=== PATIENT | female | born 1975 | race Caucasian/White ===

== ENCOUNTER 2016-12-02 07:47 | Emergency (ER) | payer OTHER ==
[~2016-12-02] VITALS: Ht 170.2 cm; Wt 88.5 kg
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
[2016-12-02] MEDS ORDERED: NS IV 1000 ML 1,000 ML IV ONE (08:23)
[2016-12-02 08:40] LABS: BASOPHILS % (AUTO) 0 % (0-10); EOSINOPHILS # (AUTO) 0.2 10^3/uL (0.0-0.3); EOSINOPHILS % (AUTO) 2 % (0-10); LYMPHOCYTES # (AUTO) 1.1 X 10^3 (1.0-4.0); LYMPHOCYTES % (AUTO) 10 % (12-44); MEAN CORPUSCULAR HEMOGLOBIN 27 PG (25-34); MEAN CORPUSCULAR HGB CONC 32 G/DL (32-36); MEAN CORPUSCULAR VOLUME 83 FL (80-99); MONOCYTES # (AUTO) 1.3 X 10^3 (0.0-1.0); MONOCYTES % (AUTO) 12 % (0-12); NEUTROPHILS # (AUTO) 8.4 X 10^3 (1.8-7.8); NEUTROPHILS % (AUTO) 76 % (42-75); PLATELET COUNT 315 10^3/uL (130-400); RED BLOOD COUNT 4.74 10^6/uL (4.35-5.85); RED CELL DISTRIBUTION WIDTH 13.6 % (10.0-14.5)
[2016-12-02 08:48] LABS: BILIRUBIN,URINE NEGATIVE (NEGATIVE); KETONES,URINE NEGATIVE (NEGATIVE); LEUKOCYTE ESTERASE ,URINE 2+ (NEGATIVE); NITRITE,URINE NEGATIVE (NEGATIVE); PH,URINE 6 (5-9); PROTEIN,URINE 2+ (NEGATIVE); UROBILINOGEN,URINE NORMAL (NORMAL)
[2016-12-02 08:58] LABS: ALANINE AMINOTRANSFERASE 9 U/L (0-55); ALBUMIN 3.3 G/DL (3.2-4.5); ANION GAP 7 MMOL/L (5-14); ASPARTATE AMINO TRANSFERASE 12 U/L (5-34); BILIRUBIN,TOTAL 0.5 MG/DL (0.1-1.0); BLOOD UREA NITROGEN 10 MG/DL (7-18); BUN/CREATININE RATIO 13; CALCIUM 8.7 MG/DL (8.5-10.1); CARBON DIOXIDE 23 MMOL/L (21-32); CHLORIDE 105 MMOL/L (98-107); CREATININE SERUM 0.79 MG/DL (0.60-1.30); GFR ESTIMATED > 60; GLUCOSE 103 MG/DL (70-105); POTASSIUM 3.8 MMOL/L (3.6-5.0); SODIUM 135 MMOL/L (135-145); TOTAL PROTEIN 6.3 G/DL (6.4-8.2); hs C REACTIVE PROTEIN 5.06 MG/DL (0.00-0.50)
[2016-12-02 08:58] LABS: SQUAMOUS EPITHELIAL CELL,UR TNTC /HPF
[2016-12-02] MEDS ORDERED: ACETAMINOPHEN 500 MG TAB (TYLENOL) PO STA (09:02)
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
[2016-12-02 09:21] LABS: ERYTHROCYTE SEDIMENTATION RATE 31 MM/HR (0-20)
[2016-12-02] MEDS ORDERED: cefTRIAXone INJECTION 1,000 MG in NS (IVPB) 50 ML IV ONE (10:00)
[2016-12-02] MEDS ORDERED: LEVO750T39 PO (10:19)
[2016-12-02] MEDS ORDERED: ANTI DEPRESSANT (10:29)
[2016-12-02] MEDS ORDERED: ADDERALL XR (10:29)
[2016-12-02] MEDS ORDERED: ANTI ANXIETY (10:29)
[2016-12-02] MEDS ORDERED: DOXYCYCLINE (10:29)
[2016-12-02 10:40] VITALS: BP 90/51
== END 2016-12-02 10:40 | disposition home or self-care (01) ==
LOC: EDUNIT# 07:47 → ER 07:49
DX: J18.9 Pneumonia, unspecified organism (principal); K92.1 Melena
CPT/HCPCS: 36415; 71020; 80053; 81000; 83605; 85025; 85652; 86141; 87040; 87088; 96361; 96365

== ENCOUNTER → 2016-12-03 | Outpatient (CLI) | payer OTHER ==
[~2016-12-03] MED LIST: ADDERALL XR; ANTI ANXIETY; ANTI DEPRESSANT; DOXYCYCLINE; LEVO750T39 PO
--- NOTE | 2016-12-03 13:02 | Diagnostic Imaging Report ---
PA and lateral views of the chest. INDICATION: Pneumonia. COMPARISON: 12/02/2016. FINDINGS: Bilateral perihilar infiltrates are again noted with no significant change. The heart size is normal. No effusion or pneumothorax. The mediastinum and lawrence appear unremarkable. Surgical clips in the upper right abdomen seen. There is an indeterminate rounded density in the right axilla which may relate to a calcified lymph node from prior granulomatous infection or an oil cyst in the axillary tail of the breast. IMPRESSION: Bilateral patchy perihilar infiltrates unchanged from the prior exam. Dictated by: Dictated on workstation # [id number]
== END ==
LOC: RAD 10:21
PROVIDERS: ATTEND Family Medicine
DX: J18.9 Pneumonia, unspecified organism (principal)
CPT/HCPCS: 71020

== ENCOUNTER → 2017-01-12 | Outpatient (CLI) | payer OTHER | END | disposition home or self-care (01) | LOC: RAD 07:17 | PROVIDERS: ATTEND Nurse Practitioner Community Health | DX: Z12.31 Encounter for screening mammogram for malignant neoplasm of breast (principal) | CPT/HCPCS: 77067 ==

== ENCOUNTER 2017-06-12 07:56 | Outpatient (RCR) | payer OTHER | END 2017-09-10 | disposition home or self-care (01) | LOC: CARD 07:56 | PROVIDERS: ATTEND Internal Medicine Interventional Cardiology | DX: R00.2 Palpitations (principal); R94.31 Abnormal electrocardiogram [ECG] [EKG]; R06.02 Shortness of breath | CPT/HCPCS: 93225; 93226 ==

== ENCOUNTER → 2017-06-17 | Outpatient (CLI) | payer OTHER ==
--- NOTE | 2017-06-17 16:14 | Diagnostic Imaging Report ---
PROCEDURE: MR imaging cervical spine without contrast. TECHNIQUE: Multiplanar, multisequence MR imaging of the cervical spine was performed without contrast. INDICATION: Neck pain radiating into the right arm. COMPARISON: No previous for direct comparison. FINDINGS: There is straightening of cervical lordosis without listhesis. Marrow signal intensity of the cervical spine was unremarkable. There is no paravertebral mass, hemorrhage, or fluid collection. Cord itself appeared intrinsically unremarkable. The craniocervical relationship, the C1-C2 level and disc, the C2-C3, and the C3-C4 as well as C4-C5 levels and discs all appeared normal. The canal and neural foramina are widely patent at those levels. C5-C6: There is disc desiccation, loss of disc stature, and diffuse posterior bulging and elevation of the posterior longitudinal ligament. Disease effaces the ventral thecal sac with no perceptible CSF ventral or dorsal to the cord at the level of maximal narrowing where the AP canal diameter was narrowed to measure 7.3 mm with kepisuml-lv-[id number] canal stenosis resultant. There does appear to be mild biforaminal narrowing owing to the disc. C6-C7: Eccentric to the right posterior broad-based disc protrusion indents the ventral thecal sac and results in at least moderate stenosis of the proximal aspect of the right neural foramen. Disc extends posterior to the endplate margin maximal about 5 mm and measures a little over 1 cm transverse at its base. The C7-T1 level and disc appeared normal. IMPRESSION: Disc protrusions posteriorly at C5-C6 and C6-C7 resulting in canal and foraminal stenoses as described. Cord appeared intrinsically normal, and no acute osseous pathology. The remaining levels and discs appeared normal. Dictated by: Dictated on workstation # [id number]
== END ==
LOC: RAD 11:17
PROVIDERS: ATTEND Nurse Practitioner Community Health
DX: M50.222 Other cervical disc displacement at C5-C6 level (principal)
CPT/HCPCS: 72141

== ENCOUNTER → 2017-09-30 | Outpatient (CLI) | payer OTHER | LOC: CARD 11:11 | PROVIDERS: ATTEND Internal Medicine Interventional Cardiology | DX: R00.2 Palpitations (principal); R06.02 Shortness of breath; I45.81 Long QT syndrome | CPT/HCPCS: 93306 ==

== ENCOUNTER 2018-05-03 20:07 | Outpatient (CLI) | payer OTHER | END 2018-05-04 06:53 | disposition home or self-care (01) | LOC: SLEEP 20:07 | PROVIDERS: ATTEND Nurse Practitioner Community Health | DX: G47.10 Hypersomnia, unspecified (principal); R06.83 Snoring; G47.61 Periodic limb movement disorder; F39 Unspecified mood [affective] disorder | CPT/HCPCS: 95810 ==

== ENCOUNTER 2018-08-16 14:54 | Outpatient (CLI) | payer OTHER ==
[~2018-08-16] VITALS: Ht 170.2 cm; Wt 99.3 kg
[2018-08-16 15:03] VITALS: BP 134/75
[2018-08-16] MEDS ORDERED: GUAN1TAB21 PO (15:07)
[2018-08-16] MEDS ORDERED: TRAZ150T72 PO (15:38)
[2018-08-16] MEDS ORDERED: DEXM30CP PO (15:38)
[2018-08-16] MEDS ORDERED: LORA-404 PO (15:38)
[2018-08-16] MEDS ORDERED: NEBI5TAB8 PO (15:38)
[2018-08-16] MEDS ORDERED: ROPI1TAB2 PO (15:38)
[2018-08-16] MEDS ORDERED: DESV100T PO (15:38)
[2018-08-16] MEDS ORDERED: RANI150T46 PO (15:38)
[2018-08-16] MEDS ORDERED: RT-ALBUINH IH (15:38)
[2018-08-16 16:05] LABS: BASOPHILS % (AUTO) 0 % (0-10); EOSINOPHILS # (AUTO) 0.1 10^3/uL (0.0-0.3); EOSINOPHILS % (AUTO) 1 % (0-10); HEMATOCRIT 43 % (35-52); HEMOGLOBIN 14.1 G/DL (11.5-16.0); LYMPHOCYTES # (AUTO) 2.1 X 10^3 (1.0-4.0); LYMPHOCYTES % (AUTO) 16 % (12-44); MEAN CORPUSCULAR HEMOGLOBIN 28 PG (25-34); MEAN CORPUSCULAR HGB CONC 33 G/DL (32-36); MEAN CORPUSCULAR VOLUME 85 FL (80-99); MEAN PLATELET VOLUME 10.8 FL (7.4-10.4); MONOCYTES # (AUTO) 0.8 X 10^3 (0.0-1.0); MONOCYTES % (AUTO) 6 % (0-12); NEUTROPHILS # (AUTO) 10.3 X 10^3 (1.8-7.8); NEUTROPHILS % (AUTO) 78 % (42-75); PLATELET COUNT 403 10^3/uL (130-400); RED BLOOD COUNT 5.03 10^6/uL (4.35-5.85); RED CELL DISTRIBUTION WIDTH 13.8 % (10.0-14.5); WHITE BLOOD COUNT 13.2 10^3/uL (4.3-11.0)
== END 2018-08-16 15:25 | disposition home or self-care (01) ==
LOC: PREOP 14:54
PROVIDERS: ATTEND Obstetrics & Gynecology
DX: Z01.812 Encounter for preprocedural laboratory examination (principal); Z11.2 Encounter for screening for other bacterial diseases; N93.8 Other specified abnormal uterine and vaginal bleeding; N81.6 Rectocele; D64.9 Anemia, unspecified
CPT/HCPCS: 36415; 85025; 86850; 86900; 86901; 87081

== ENCOUNTER 2018-08-20 11:20 | Day surgery (SDC) | payer OTHER ==
[~2018-08-20] VITALS: Ht 170.2 cm; Wt 99.3 kg
[~2018-08-20 11:20] MED LIST changes: +DESV100T PO; +DEXM30CP PO; +GUAN1TAB21 PO; +LORA-404 PO; +NEBI5TAB8 PO; +RANI150T46 PO; +ROPI1TAB2 PO; +RT-ALBUINH IH; +TRAZ150T72 PO
--- OUTSIDE RECORDS SUMMARY | 2018-08-20 11:27 | XMS REPORT | Clinical Summary ---
Author Author [facility] Organization [facility] Address Unknown Phone Unavailable Care Team Providers Care Senior Software Engineering Manager Name Role Phone Yana Patrick MD PP Allergies Comments Active Allergy Reactions Severity Noted Date Hives IODINE Iodine Medications End Date Status Medication Sig Dispensed Refills Start Date Active lidocaine (XYLOCAINE) 2 % Swish and 100 mL 0 solutionIndications: Sore hold 2.5-5 ml 4 throat PO every 1-2 hours prn for throat/mouth pain or cough, then swallow or spit. Active amphetamine-dextroampheta Take 1 tablet 30 tablet 0 mine (ADDERALL) 10 MG (10 mg total) 4 tablet by mouth every morning. Active amphetamine-dextroampheta Take 2 60 capsule 0 mine (ADDERALL XR) 30 MG capsules (60 4 24 hr capsuleIndications: mg total) by Attention deficit mouth every disorder without mention morning. of hyperactivity Active Problems Problem Noted Date Dysuria 02/08/2013 Abnormal glandular Papanicolaou smear of cervix Anxiety state, unspecified Attention deficit disorder without mention of hyperactivity Immunizations Name Dates Previously Given Next Due Influenza IIV3 MDV 04/14/2013 (Multi-dose vial) Influenza IIV3 PFree 05/10/2012, 05/03/2010 Influenza LAIV3 Nasal 05/01/2011 Tdap 02/17/2012 Family History Medical History Relation Name Comments Other Other Mother - Cancer, cervical; Fibromyalgia Other Other Father - healthy Other Other Brother #1 - is Alive, Hypertension; overweight Other Other Maternal Grandmother - is , Other History: Congestive heart failure; Cancer, colon age 60-70 Other Other Maternal Grandfather - at the age of 80s, Cause of :Pneumonia Other Other Paternal Grandfather - is , Cause of :Dementia, Alzheimer's; Other History: DM Type II Other Other Family History Comments - Daughter Bipolar disorder; ADHD Other Other Family History Comments - Daughter overweight Other Other Family History Comments - Son adopted Relation Name Status Comments Father Alive Mother Alive Other Other Other Other Other Other Other Other Other Social History Date Tobacco Use Types Packs/Day Years Used Former Smoker Comments: Quit smoking: Year stopped 2008/Number of yrs: /Packs per day: /Pack years: * Sex Assigned at Date Recorded Not on file Industry Job Start Date Occupation Not on file Not on file Not on file Travel End Travel History Travel Start No recent travel history available. 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 Weight 67.2 kg (148 lb 3.2 oz) 02/24/2013 7:55 AM CDT Height 170.2 cm (5' 7") 02/24/2013 7:55 AM CDT Body Mass Index 23.21 Plan of Treatment Health Maintenance Due Date Last Done Comments Varicella Vaccines (1 of 05/29/2011 2 - 13+ 2-dose series) CERVICAL CANCER SCREENING 11/12/2016 11/13/2011, 11/13/2011, 05/22/2011 Influenza Vaccine (#1) 2018 04/14/2013, 05/10/2012, 05/01/2011, Additional history exists DTaP,Tdap,and Td Vaccines 02/16/2022 02/17/2012 (2 - Td) Results Not on filefrom Last 3 Months Insurance Type Payer Benefit Subscriber ID Effective Phone Address Plan / Dates Group [employer]/C xxxxxxxxxx 2013-P [phone] [address] [place] [id number] [place] [id number] Advance Directives Patient has advance care planning documents on file. For more information, please contact: [facility] [address] [address]
--- OUTSIDE RECORDS SUMMARY | 2018-08-20 11:28 | XMS REPORT | Continuity of Care Document ---
Author Author [facility] Organization [facility] Address Unknown Phone Unavailable Allergies Active Description Code Type Severity Reaction Onset Reported/Identified Relationship to Patient Clinical Status Yes Iodinated Contrast Media - Oral and [id number] Drug Allergy Unknown N/A 09/2016 Yes Iodinated Contrast- Oral and IV Dye [id number] Drug Allergy Unknown N/A 09/2016 Medications There is no data. Problems Date Dx Coded Attending Type Code Diagnosis Diagnosed By 10/18/2015 KARLO EAGLE YOUTUBER Ot E05.90 11/05/2015 KARLO EAGLE YOUTUBER Ot E05.90 12/02/2016 KARLO EAGLE YOUTUBER Ot E05.90 THYROTOXICOSIS, UNSP WITHOUT THYROTOXIC 12/02/2016 KARLO EAGLE YOUTUBER Ot E05.90 THYROTOXICOSIS, UNSP WITHOUT THYROTOXIC 12/02/2016 JONELLE SCHAFFER MD Ot J18.9 PNEUMONIA, UNSPECIFIED ORGANISM 12/02/2016 JONELLE SCHAFFER MD Ot K92.1 MELENA 12/02/2016 JONELLE SCHAFFER MD Ot R05 COUGH 12/02/2016 KARLO EAGLE YOUTUBER Ot E05.90 THYROTOXICOSIS, UNSP WITHOUT THYROTOXIC 12/04/2016 JONELLE SCHAFFER MD Ot J18.9 PNEUMONIA, UNSPECIFIED ORGANISM 12/04/2016 JONELLE SCHAFFER MD Ot K92.1 MELENA 12/04/2016 JONELLE SCHAFFER MD Ot R05 COUGH 12/05/2016 JONELLE SCHAFFER MD Ot J18.9 PNEUMONIA, UNSPECIFIED ORGANISM 12/05/2016 JONELLE SCHAFFER MD Ot K92.1 MELENA 12/05/2016 JONELLE SCHAFFER MD Ot R05 COUGH 12/09/2016 DANIEL SMITH MD Ot J18.9 PNEUMONIA, UNSPECIFIED ORGANISM 01/12/2017 CATALINA RIVERA Ot Z12.31 ENCNTR SCREEN MAMMOGRAM FOR MALIGNANT NE 03/12/2017 CATALINA RIVERA Ot Z12.31 ENCNTR SCREEN MAMMOGRAM FOR MALIGNANT NE 06/05/2017 DANIEL SMITH MD Ot J18.9 PNEUMONIA, UNSPECIFIED ORGANISM 06/12/2017 DANIEL SMITH MD Ot J18.9 PNEUMONIA, UNSPECIFIED ORGANISM 06/15/2017 Javi MEEKS MD Ot R00.2 PALPITATIONS 06/15/2017 Javi MEEKS MD Ot R06.02 SHORTNESS OF BREATH 06/15/2017 Javi MEEKS MD Ot R94.31 ABNORMAL ELECTROCARDIOGRAM [ECG] [EKG] 06/17/2017 DANIEL SMITH MD Ot J18.9 PNEUMONIA, UNSPECIFIED ORGANISM 06/17/2017 CATALINA RIVERA Ot Z12.31 ENCNTR SCREEN MAMMOGRAM FOR MALIGNANT NE 06/17/2017 Javi MEEKS MD Ot R00.2 PALPITATIONS 06/17/2017 Javi MEEKS MD Ot R06.02 SHORTNESS OF BREATH 06/17/2017 Javi MEEKS MD Ot R94.31 ABNORMAL ELECTROCARDIOGRAM [ECG] [EKG] 07/08/2017 DANIEL SMITH MD Ot J18.9 PNEUMONIA, UNSPECIFIED ORGANISM 07/08/2017 Javi MEEKS MD Ot R00.2 PALPITATIONS 07/08/2017 Javi MEEKS MD Ot R06.02 SHORTNESS OF BREATH 07/08/2017 Javi MEEKS MD Ot R94.31 ABNORMAL ELECTROCARDIOGRAM [ECG] [EKG] 07/08/2017 CATALINA RIVERA Ot M50.222 OTHER CERVICAL DISC DISPLACEMENT AT C5-C 07/30/2017 DANIEL SMITH MD Ot J18.9 PNEUMONIA, UNSPECIFIED ORGANISM 07/30/2017 Javi MEEKS MD Ot R00.2 PALPITATIONS 07/30/2017 Javi MEEKS MD Ot R06.02 SHORTNESS OF BREATH 07/30/2017 Javi MEEKS MD Ot R94.31 ABNORMAL ELECTROCARDIOGRAM [ECG] [EKG] 07/30/2017 CATALINA RIVERA Ot M50.222 OTHER CERVICAL DISC DISPLACEMENT AT C5-C 07/30/2017 CATALINA RIVERA Ot M50.222 OTHER CERVICAL DISC DISPLACEMENT AT C5-C 08/07/2017 CONSTANTINO GONZALES, Javi MULLEN Ot R00.2 PALPITATIONS 08/07/2017 CONSTANTINO GONZALES, Javi MULLEN Ot R06.02 SHORTNESS OF BREATH 08/07/2017 Javi MEEKS MD Ot R94.31 ABNORMAL ELECTROCARDIOGRAM [ECG] [EKG] 09/10/2017 Javi MEEKS MD Ot R00.2 PALPITATIONS 09/10/2017 Javi MEEKS MD Ot R06.02 SHORTNESS OF BREATH 09/10/2017 Javi MEEKS MD Ot R94.31 ABNORMAL ELECTROCARDIOGRAM [ECG] [EKG] 09/15/2017 CATALINA RIVERA Ot M50.222 OTHER CERVICAL DISC DISPLACEMENT AT C5-C 09/15/2017 DANIEL SMITH MD Ot J18.9 PNEUMONIA, UNSPECIFIED ORGANISM 09/15/2017 CATALINA RIVERA Ot Z12.31 ENCNTR SCREEN MAMMOGRAM FOR MALIGNANT NE 09/15/2017 Javi MEEKS MD Ot R00.2 PALPITATIONS 09/15/2017 Javi MEEKS MD Ot R06.02 SHORTNESS OF BREATH 09/15/2017 Javi MEEKS MD Ot R94.31 ABNORMAL ELECTROCARDIOGRAM [ECG] [EKG] 09/18/2017 KARLO EAGLE APRN Ot E05.90 THYROTOXICOSIS, UNSP WITHOUT THYROTOXIC 09/18/2017 DANIEL SMITH MD Ot J18.9 PNEUMONIA, UNSPECIFIED ORGANISM 09/18/2017 CATALINA RIVERA Ot Z12.31 ENCNTR SCREEN MAMMOGRAM FOR MALIGNANT NE 09/18/2017 CATALINA RIVERA Ot M50.222 OTHER CERVICAL DISC DISPLACEMENT AT C5-C 09/18/2017 CONSTANTINO GONZALES, Javi MULLEN Ot R00.2 PALPITATIONS 09/18/2017 Javi MEEKS MD Ot R06.02 SHORTNESS OF BREATH 09/18/2017 Javi MEEKS MD Ot R94.31 ABNORMAL ELECTROCARDIOGRAM [ECG] [EKG] 09/18/2017 LUIS GONZALES, DANIEL Sung Ot J18.9 PNEUMONIA, UNSPECIFIED ORGANISM 09/18/2017 CONSTANTINO GONZALES, Javi MULLEN Ot R00.2 PALPITATIONS 09/18/2017 Javi MEEKS MD Ot R06.02 SHORTNESS OF BREATH 09/18/2017 Javi MEEKS MD Ot R94.31 ABNORMAL ELECTROCARDIOGRAM [ECG] [EKG] 09/30/2017 DANIEL SMITH MD Ot J18.9 PNEUMONIA, UNSPECIFIED ORGANISM 09/30/2017 CATALINA RIVERA Ot Z12.31 ENCNTR SCREEN MAMMOGRAM FOR MALIGNANT NE 09/30/2017 Javi MEEKS MD Ot R00.2 PALPITATIONS 09/30/2017 Javi MEEKS MD Ot R06.02 SHORTNESS OF BREATH 09/30/2017 Javi MEEKS MD Ot R94.31 ABNORMAL ELECTROCARDIOGRAM [ECG] [EKG] 10/01/2017 Javi MEEKS MD Ot I45.81 LONG QT SYNDROME 10/01/2017 Javi MEEKS MD Ot R00.2 PALPITATIONS 10/01/2017 Javi MEEKS MD Ot R06.02 SHORTNESS OF BREATH 02/09/2018 DANIEL SMITH MD Ot J18.9 PNEUMONIA, UNSPECIFIED ORGANISM 02/09/2018 CATALINA RIVERA Ot Z12.31 ENCNTR SCREEN MAMMOGRAM FOR MALIGNANT NE 02/09/2018 Javi MEEKS MD Ot I45.81 LONG QT SYNDROME 02/09/2018 Javi MEEKS MD Ot R00.2 PALPITATIONS 02/09/2018 Javi MEEKS MD Ot R06.02 SHORTNESS OF BREATH 02/09/2018 Javi MEEKS MD Ot R00.2 PALPITATIONS 02/09/2018 CONSTANTINO GONZALES, Javi MULLEN Ot R06.02 SHORTNESS OF BREATH 02/09/2018 Javi MEEKS MD Ot R94.31 ABNORMAL ELECTROCARDIOGRAM [ECG] [EKG] 02/12/2018 DANIEL SMITH MD Ot J18.9 PNEUMONIA, UNSPECIFIED ORGANISM 02/12/2018 CATALINA RIVERA Ot Z12.31 ENCNTR SCREEN MAMMOGRAM FOR MALIGNANT NE 02/12/2018 CONSTANTINO GONZALES, Javi MULLEN Ot I45.81 LONG QT SYNDROME 02/12/2018 Javi MEEKS MD Ot R00.2 PALPITATIONS 02/12/2018 Javi MEEKS MD Ot R06.02 SHORTNESS OF BREATH 02/12/2018 Javi MEEKS MD Ot R00.2 PALPITATIONS 02/12/2018 Javi MEEKS MD Ot R06.02 SHORTNESS OF BREATH 02/12/2018 Javi MEEKS MD Ot R94.31 ABNORMAL ELECTROCARDIOGRAM [ECG] [EKG] 03/03/2018 KARLO EAGLE APRN Ot E05.90 THYROTOXICOSIS, UNSP WITHOUT THYROTOXIC 03/03/2018 DANIEL SMITH MD Ot J18.9 PNEUMONIA, UNSPECIFIED ORGANISM 03/03/2018 CATALINA RIVERA Ot Z12.31 ENCNTR SCREEN MAMMOGRAM FOR MALIGNANT NE 03/03/2018 CATALINA RIVERA Ot M50.222 OTHER CERVICAL DISC DISPLACEMENT AT C5-C 03/03/2018 Javi MEEKS MD Ot I45.81 LONG QT SYNDROME 03/03/2018 Javi MEEKS MD Ot R00.2 PALPITATIONS 03/03/2018 Javi MEEKS MD Ot R06.02 SHORTNESS OF BREATH 03/03/2018 Javi MEEKS MD Ot R00.2 PALPITATIONS 03/03/2018 Javi MEEKS MD Ot R06.02 SHORTNESS OF BREATH 03/03/2018 Javi MEEKS MD Ot R94.31 ABNORMAL ELECTROCARDIOGRAM [ECG] [EKG] 05/01/2018 LUIS GONZALES, DANIEL Sung Ot J18.9 PNEUMONIA, UNSPECIFIED ORGANISM 05/01/2018 Javi MEEKS MD Ot I45.81 LONG QT SYNDROME 05/01/2018 CONSTANTINO GONZALES, Javi MULLEN Ot R00.2 PALPITATIONS 05/01/2018 CONSTANTINO GONZALES, Javi MULLEN Ot R06.02 SHORTNESS OF BREATH 05/01/2018 CONSTANTINO GONZALES, Javi MULLEN Ot R00.2 PALPITATIONS 05/01/2018 CONSTANTINO GONZALES, Javi MULLEN Ot R06.02 SHORTNESS OF BREATH 05/01/2018 CONSTANTINO GONZALES, Javi MULLEN Ot R94.31 ABNORMAL ELECTROCARDIOGRAM [ECG] [EKG] 05/03/2018 DANIEL SMITH MD Ot J18.9 PNEUMONIA, UNSPECIFIED ORGANISM 05/03/2018 CONSTANTINO GONZALES, Javi MULLEN Ot I45.81 LONG QT SYNDROME 05/03/2018 Javi MEEKS MD Ot R00.2 PALPITATIONS 05/03/2018 Javi MEEKS MD Ot R06.02 SHORTNESS OF BREATH 05/03/2018 Javi MEEKS MD Ot R00.2 PALPITATIONS 05/03/2018 Javi MEEKS MD Ot R06.02 SHORTNESS OF BREATH 05/03/2018 Javi MEEKS MD Ot R94.31 ABNORMAL ELECTROCARDIOGRAM [ECG] [EKG] 05/03/2018 DANIEL SMITH MD Ot J18.9 PNEUMONIA, UNSPECIFIED ORGANISM 05/03/2018 CATALINA RIVERA Ot Z12.31 ENCNTR SCREEN MAMMOGRAM FOR MALIGNANT NE 05/03/2018 Javi MEEKS MD Ot I45.81 LONG QT SYNDROME 05/03/2018 Javi MEEKS MD Ot R00.2 PALPITATIONS 05/03/2018 Javi MEEKS MD Ot R06.02 SHORTNESS OF BREATH 05/03/2018 Javi MEEKS MD Ot R00.2 PALPITATIONS 05/03/2018 Javi MEEKS MD Ot R06.02 SHORTNESS OF BREATH 05/03/2018 CONSTANTINO GONZALES, Javi MULLEN Ot R94.31 ABNORMAL ELECTROCARDIOGRAM [ECG] [EKG] 05/04/2018 RM RIVERAA [employer] Ot F39 UNSPECIFIED MOOD [AFFECTIVE] DISORDER 05/04/2018 RM RIVERAA [employer] Ot G47.10 HYPERSOMNIA, UNSPECIFIED 05/04/2018 RM RIVERAA [employer] Ot G47.61 PERIODIC LIMB MOVEMENT DISORDER 05/04/2018 RM RIVERAA [employer] Ot R06.83 SNORING 05/05/2018 RM RIVERAA [employer] Ot F39 UNSPECIFIED MOOD [AFFECTIVE] DISORDER 05/05/2018 RM RIVERAA [employer] Ot G47.10 HYPERSOMNIA, UNSPECIFIED 05/05/2018 NICOLE CATALINA [employer] Ot G47.61 PERIODIC LIMB MOVEMENT DISORDER 05/05/2018 RM RIVERAA [employer] Ot R06.83 SNORING 05/21/2018 RM RIVERAA [employer] Ot M50.222 OTHER CERVICAL DISC DISPLACEMENT AT C5-C 06/30/2018 KARLO EAGLE APRN Ot E05.90 THYROTOXICOSIS, UNSP WITHOUT THYROTOXIC 06/30/2018 LUIS GONZALES, DANIEL Sung Ot J18.9 PNEUMONIA, UNSPECIFIED ORGANISM 06/30/2018 CATALINA RIVERA [employer] Ot Z12.31 ENCNTR SCREEN MAMMOGRAM FOR MALIGNANT NE 06/30/2018 CATALINA RIVERA [employer] Ot M50.222 OTHER CERVICAL DISC DISPLACEMENT AT C5-C 06/30/2018 CONSTANTINO GONZALES, Javi MULLEN Ot I45.81 LONG QT SYNDROME 06/30/2018 CONSTANTINO GONZALES, Javi MULLEN Ot R00.2 PALPITATIONS 06/30/2018 Javi MEEKS MD Ot R06.02 SHORTNESS OF BREATH 06/30/2018 CONSTANTINO GONZALES, Javi MULLEN Ot R00.2 PALPITATIONS 06/30/2018 Javi MEEKS MD Ot R06.02 SHORTNESS OF BREATH 06/30/2018 CONSTANTINO GONZALES, Javi MULLEN Ot R94.31 ABNORMAL ELECTROCARDIOGRAM [ECG] [EKG] 06/30/2018 KARLO EAGLE APRN Ot E05.90 THYROTOXICOSIS, UNSP WITHOUT THYROTOXIC 06/30/2018 LUIS GONZALES, DANIEL Sung Ot J18.9 PNEUMONIA, UNSPECIFIED ORGANISM 06/30/2018 CATALINA RIVERA Ot Z12.31 ENCNTR SCREEN MAMMOGRAM FOR MALIGNANT NE 06/30/2018 CATALINA RIVERA Ot M50.222 OTHER CERVICAL DISC DISPLACEMENT AT C5-C 06/30/2018 Javi MEEKS MD Ot I45.81 LONG QT SYNDROME 06/30/2018 Javi MEEKS MD, Ot R00.2 PALPITATIONS 06/30/2018 Javi MEEKS MD, Ot R06.02 SHORTNESS OF BREATH 06/30/2018 Javi MEEKS MD, Ot R00.2 PALPITATIONS 06/30/2018 Javi MEEKS MD, Ot R06.02 SHORTNESS OF BREATH 06/30/2018 Javi MEEKS MD, Ot R94.31 ABNORMAL ELECTROCARDIOGRAM [ECG] [EKG] Procedures There is no data. Results Test Result Range CBC With Differential/Platelet - 11/17/16 09:38 WBC 9.6 x10E3/uL 3.4-10.8 RBC 5.14 x10E6/uL 3.77-5.28 Hemoglobin 14.2 g/dL 11.1-15.9 Hematocrit 42.3 % 34.0-46.6 MCV 82 fL 79-97 MCH 27.6 pg 26.6-33.0 MCHC 33.6 g/dL 31.5-35.7 RDW 13.5 % 12.3-15.4 Platelets 345 x10E3/uL 150-379 Neutrophils 74 % Lymphs 11 % Monocytes 13 % Eos 2 % Basos 0 % Neutrophils (Absolute) 7.0 x10E3/uL 1.4-7.0 Lymphs (Absolute) 1.0 x10E3/uL 0.7-3.1 Monocytes(Absolute) 1.3 x10E3/uL 0.1-0.9 Eos (Absolute) 0.2 x10E3/uL 0.0-0.4 Baso (Absolute) 0.0 x10E3/uL 0.0-0.2 Immature Granulocytes 0 % Immature Grans (Abs) 0.0 x10E3/uL 0.0-0.1 Comp. Metabolic Panel (14) - 11/17/16 09:38 Glucose, Serum 92 mg/dL 65-99 BUN 10 mg/dL 6-24 Creatinine, Serum 0.71 mg/dL 0.57-1.00 eGFR If NonAfricn Am 105 mL/min/1.73 >59 eGFR If Africn Am 121 mL/min/1.73 >59 BUN/Creatinine Ratio 14 9-23 Sodium, Serum 141 mmol/L 134-144 Potassium, Serum 4.0 mmol/L 3.5-5.2 Chloride, Serum 99 mmol/L 96-106 Carbon Dioxide, Total 24 mmol/L 18-29 Calcium, Serum 9.0 mg/dL 8.7-10.2 Protein, Total, Serum 6.7 g/dL 6.0-8.5 Albumin, Serum 3.8 g/dL 3.5-5.5 Globulin, Total 2.9 g/dL 1.5-4.5 A/G Ratio 1.3 1.2-2.2 Bilirubin, Total 0.3 mg/dL 0.0-1.2 Alkaline Phosphatase, S 90 IU/L 39-117 AST (SGOT) 13 IU/L 0-40 ALT (SGPT) 12 IU/L 0-32 Urine Culture, Routine - 11/17/16 09:38 Urine Culture, Routine Note TSH+Free T4 - 11/17/16 09:38 TSH 1.470 uIU/mL 0.450-4.500 T4,Free(Direct) 0.95 ng/dL 0.82-1.77 Written Authorization - 11/17/16 09:38 Written Authorization Comment CBC With Differential/Platelet - 12/01/16 11:09 WBC 10.7 x10E3/uL 3.4-10.8 RBC 4.67 x10E6/uL 3.77-5.28 Hemoglobin 12.6 g/dL 11.1-15.9 Hematocrit 37.5 % 34.0-46.6 MCV 80 fL 79-97 MCH 27.0 pg 26.6-33.0 MCHC 33.6 g/dL 31.5-35.7 RDW 13.2 % 12.3-15.4 Platelets 349 x10E3/uL 150-379 Neutrophils 79 % Lymphs 11 % Monocytes 8 % Eos 2 % Basos 0 % Neutrophils (Absolute) 8.4 x10E3/uL 1.4-7.0 Lymphs (Absolute) 1.2 x10E3/uL 0.7-3.1 Monocytes(Absolute) 0.8 x10E3/uL 0.1-0.9 Eos (Absolute) 0.2 x10E3/uL 0.0-0.4 Baso (Absolute) 0.0 x10E3/uL 0.0-0.2 Immature Granulocytes 0 % Immature Grans (Abs) 0.0 x10E3/uL 0.0-0.1 Complete blood count (CBC) with automated white blood cell (WBC) differential - 12/02/16 08:30 Blood leukocytes automated count (number/volume) 11.0 10*3/uL 4.3-11.0 Blood erythrocytes automated count (number/volume) 4.74 10*6/uL 4.35-5.85 Venous blood hemoglobin measurement (mass/volume) 12.6 g/dL 11.5-16.0 Blood hematocrit (volume fraction) 39 % 35-52 Automated erythrocyte mean corpuscular volume 83 [foz_us] 80-99 Automated erythrocyte mean corpuscular hemoglobin (mass per erythrocyte) 27 pg 25-34 Automated erythrocyte mean corpuscular hemoglobin concentration measurement ( mass/volume) 32 g/dL 32-36 Automated erythrocyte distribution width ratio 13.6 % 10.0-14.5 Automated blood platelet count (count/volume) 315 10*3/uL 130-400 Automated blood platelet mean volume measurement 10.0 [foz_us] 7.4-10.4 Automated blood neutrophils/100 leukocytes 76 % 42-75 Automated blood lymphocytes/100 leukocytes 10 % 12-44 Blood monocytes/100 leukocytes 12 % 0-12 Automated blood eosinophils/100 leukocytes 2 % 0-10 Automated blood basophils/100 leukocytes 0 % 0-10 Blood neutrophils automated count (number/volume) 8.4 10*3 1.8-7.8 Blood lymphocytes automated count (number/volume) 1.1 10*3 1.0-4.0 Blood monocytes automated count (number/volume) 1.3 10*3 0.0-1.0 Automated eosinophil count 0.2 10*3/uL 0.0-0.3 Automated blood basophil count (count/volume) 0.0 10*3/uL 0.0-0.1 Comprehensive metabolic panel - 12/02/16 08:30 Serum or plasma sodium measurement (moles/volume) 135 mmol/L 135-145 Serum or plasma potassium measurement (moles/volume) 3.8 mmol/L 3.6-5.0 Serum or plasma chloride measurement (moles/volume) 105 mmol/L 98-107 Carbon dioxide 23 mmol/L 21-32 Serum or plasma anion gap determination (moles/volume) 7 mmol/L 5-14 Serum or plasma urea nitrogen measurement (mass/volume) 10 mg/dL 7-18 Serum or plasma creatinine measurement (mass/volume) 0.79 mg/dL 0.60-1.30 Serum or plasma urea nitrogen/creatinine mass ratio 13 NRG Serum or plasma creatinine measurement with calculation of estimated glomerular filtration rate > NRG Serum or plasma glucose measurement (mass/volume) 103 mg/dL 70-105 Serum or plasma calcium measurement (mass/volume) 8.7 mg/dL 8.5-10.1 Serum or plasma total bilirubin measurement (mass/volume) 0.5 mg/dL 0.1-1.0 Serum or plasma alkaline phosphatase measurement (enzymatic activity/volume) 69 U/L 40-136 Serum or plasma aspartate aminotransferase measurement (enzymatic activity/ volume) 12 U/L 5-34 Serum or plasma alanine aminotransferase measurement (enzymatic activity/volume ) 9 U/L 0-55 Serum or plasma protein measurement (mass/volume) 6.3 g/dL 6.4-8.2 Serum or plasma albumin measurement (mass/volume) 3.3 g/dL 3.2-4.5 Serum or plasma C reactive protein measurement (mass/volume) - 12/02/16 08:30 Serum or plasma C reactive protein measurement (mass/volume) 5.06 mg /dL 0.00-0.50 Erythrocyte sedimentation rate by westergren method - 12/02/16 08:30 Erythrocyte sedimentation rate by westergren method 31 mm 0-20 Complete urinalysis with reflex to culture - 12/02/16 08:40 Urine color determination YELLOW NRG Urine clarity determination CLEAR NRG Urine pH measurement by test strip 6 5-9 Specific gravity of urine by test strip 1.025 1.016- 1.022 Urine protein assay by test strip, semi-quantitative 2+ NEGATIVE Urine glucose detection by automated test strip NEGATIVE NEGATIVE Erythrocytes detection in urine sediment by light microscopy 4+ NEGATIVE Urine ketones detection by automated test strip NEGATIVE NEGATIVE Urine nitrite detection by test strip NEGATIVE NEGATIVE Urine total bilirubin detection by test strip NEGATIVE NEGATIVE Urine urobilinogen measurement by automated test strip (mass/volume) NORMAL NORMAL Urine leukocyte esterase detection by dipstick 2+ NEGATIVE Automated urine sediment erythrocyte count by microscopy (number/high power field) [HPF] NRG Automated urine sediment leukocyte count by microscopy (number/high power field ) [HPF] NRG Bacteria detection in urine sediment by light microscopy LARGE NRG Squamous epithelial cells detection in urine sediment by light microscopy TNTC NRG Crystals detection in urine sediment by light microscopy NONE NRG Casts detection in urine sediment by light microscopy NONE NRG Mucus detection in urine sediment by light microscopy NEGATIVE NRG Complete urinalysis with reflex to culture YES NRG Bacterial urine culture - 12/02/16 08:40 URINE CULTURE RESULTS 10,000/ML - 100,000/ML NRG Blood lactic acid measurement (moles/volume) - 12/02/16 09:25 Blood lactic acid measurement (moles/volume) 0.91 mmol/L 0.50-2.00 Bacterial blood culture - 12/02/16 09:25 Bacterial blood culture NG NRG Bacterial blood culture - 12/02/16 09:43 Bacterial blood culture NG NRG Lipid Panel - 03/12/17 08:00 Cholesterol, Total 203 mg/dL 100-199 Triglycerides 115 mg/dL 0-149 HDL Cholesterol 62 mg/dL >39 VLDL Cholesterol Surya 23 mg/dL 5-40 LDL Cholesterol Calc 118 mg/dL 0-99 CBC w/ MANUAL DIFF - 05/14/17 08:04 WBC 8.9 x10E3/uL 3.4-10.8 RBC 4.96 x10E6/uL 3.77-5.28 Hemoglobin 13.6 g/dL 11.1-15.9 Hematocrit 40.8 % 34.0-46.6 MCV 82 fL 79-97 MCH 27.4 pg 26.6-33.0 MCHC 33.3 g/dL 31.5-35.7 RDW 13.8 % 12.3-15.4 Platelets 413 x10E3/uL 150-379 Neutrophils 68 % Not Estab. Lymphs 22 % Not Estab. Monocytes 5 % Not Estab. Eos 3 % Not Estab. Basos 2 % Not Estab. Neutrophils Absolute 6.1 X10E3/uL 1.4-7.0 Lymphs (Absolute) 2.0 X10E3/uL 0.7-3.1 Monocytes(Absolute) 0.4 X10E3/uL 0.1-0.9 Eos (Absolute Value) 0.3 X10E3/uL 0.0-0.4 Baso(Absolute) 0.2 X10E3/uL 0.0-0.2 Differential Comment Note: NRG RBC Comment Note: Normal Platelet Comment Note: Adequate TSH+Free T4 - 05/14/17 08:04 TSH 1.660 uIU/mL 0.450-4.500 T4,Free(Direct) 1.10 ng/dL 0.82-1.77 CBC+Platelet+Hem Review - 05/14/17 08:04 WBC 8.9 x10E3/uL 3.4-10.8 RBC 4.96 x10E6/uL 3.77-5.28 Hemoglobin 13.6 g/dL 11.1-15.9 Hematocrit 40.8 % 34.0-46.6 MCV 82 fL 79-97 MCH 27.4 pg 26.6-33.0 MCHC 33.3 g/dL 31.5-35.7 RDW 13.8 % 12.3-15.4 Platelets 413 x10E3/uL 150-379 Neutrophils 68 % Not Estab. Lymphs 22 % Not Estab. Monocytes 5 % Not Estab. Eos 3 % Not Estab. Basos 2 % Not Estab. Neutrophils Absolute 6.1 X10E3/uL 1.4-7.0 Lymphs (Absolute) 2.0 X10E3/uL 0.7-3.1 Monocytes(Absolute) 0.4 X10E3/uL 0.1-0.9 Eos (Absolute Value) 0.3 X10E3/uL 0.0-0.4 Baso(Absolute) 0.2 X10E3/uL 0.0-0.2 Differential Comment Note: RBC Comment Note: Normal Platelet Comment Note: Adequate Comp. Metabolic Panel (14) - 05/14/17 08:04 Glucose, Serum 94 mg/dL 65-99 BUN 11 mg/dL 6-24 Creatinine, Serum 0.81 mg/dL 0.57-1.00 eGFR If NonAfricn Am 89 mL/min/1.73 >59 eGFR If Africn Am 103 mL/min/1.73 >59 BUN/Creatinine Ratio 14 9-23 Sodium, Serum 138 mmol/L 134-144 Potassium, Serum 4.7 mmol/L 3.5-5.2 Chloride, Serum 98 mmol/L 96-106 Carbon Dioxide, Total 24 mmol/L 18-29 Calcium, Serum 9.3 mg/dL 8.7-10.2 Protein, Total, Serum 6.4 g/dL 6.0-8.5 Albumin, Serum 3.7 g/dL 3.5-5.5 Globulin, Total 2.7 g/dL 1.5-4.5 A/G Ratio 1.4 1.2-2.2 Bilirubin, Total 0.4 mg/dL 0.0-1.2 Alkaline Phosphatase, S 81 IU/L 39-117 AST (SGOT) 11 IU/L 0-40 ALT (SGPT) 14 IU/L 0-32 Insulin - 05/14/17 08:04 Insulin 10.8 uIU/mL 2.6-24.9 HSV 1/2 ANTIBODY IgM - 11/05/17 08:51 HSV 1 IGM SCREEN NEGATIVE NRG HSV 2 IGM SCREEN NEGATIVE NRG VITAMIN B12/FOLATE, SERUM PANEL - 11/05/17 08:51 VITAMIN B12 328 pg/mL 200-1100 FOLATE, SERUM 10.8 ng/mL NRG CULTURE, SPUTUM - 11/09/17 16:55 CULTURE, SPUTUM/LOWER RESPIRATORY SEE NOTE NRG CBC - 03/30/18 17:30 WHITE BLOOD CELL COUNT 13.1 Thousand/uL 3.8-10.8 RED BLOOD CELL COUNT 5.13 Million/uL 3.80-5.10 HEMOGLOBIN 14.2 g/dL 11.7-15.5 HEMATOCRIT 42.6 % 35.0-45.0 MCV 83.0 fL 80.0-100.0 MCH 27.7 pg 27.0-33.0 MCHC 33.3 g/dL 32.0-36.0 RDW 12.5 % 11.0-15.0 PLATELET COUNT 408 Thousand/uL 140-400 MPV 10.7 fL 7.5-12.5 ABSOLUTE NEUTROPHILS 9707 cells/uL 3741-6998 ABSOLUTE LYMPHOCYTES 2437 cells/uL 850-3900 ABSOLUTE MONOCYTES 747 cells/uL 200-950 ABSOLUTE EOSINOPHILS 144 cells/uL 15-500 ABSOLUTE BASOPHILS 66 cells/uL 0-200 NEUTROPHILS 74.1 % NRG LYMPHOCYTES 18.6 % NRG MONOCYTES 5.7 % NRG EOSINOPHILS 1.1 % NRG BASOPHILS 0.5 % NRG Complete blood count (CBC) with automated white blood cell (WBC) differential - 08/16/18 15:17 Blood leukocytes automated count (number/volume) 13.2 10*3/uL 4.3-11.0 Blood erythrocytes automated count (number/volume) 5.03 10*6/uL 4.35-5.85 Venous blood hemoglobin measurement (mass/volume) 14.1 g/dL 11.5-16.0 Blood hematocrit (volume fraction) 43 % 35-52 Automated erythrocyte mean corpuscular volume 85 [foz_us] 80-99 Automated erythrocyte mean corpuscular hemoglobin (mass per erythrocyte) 28 pg 25-34 Automated erythrocyte mean corpuscular hemoglobin concentration measurement ( mass/volume) 33 g/dL 32-36 Automated erythrocyte distribution width ratio 13.8 % 10.0-14.5 Automated blood platelet count (count/volume) 403 10*3/uL 130-400 Automated blood platelet mean volume measurement 10.8 [foz_us] 7.4-10.4 Automated blood neutrophils/100 leukocytes 78 % 42-75 Automated blood lymphocytes/100 leukocytes 16 % 12-44 Blood monocytes/100 leukocytes 6 % 0-12 Automated blood eosinophils/100 leukocytes 1 % 0-10 Automated blood basophils/100 leukocytes 0 % 0-10 Blood neutrophils automated count (number/volume) 10.3 10*3 1.8-7.8 Blood lymphocytes automated count (number/volume) 2.1 10*3 1.0-4.0 Blood monocytes automated count (number/volume) 0.8 10*3 0.0-1.0 Automated eosinophil count 0.1 10*3/uL 0.0-0.3 Automated blood basophil count (count/volume) 0.0 10*3/uL 0.0-0.1 Blood type T Indirect antibody screen panel - 08/16/18 15:17 ABO+Rh group AP NRG Blood group antibody screen NEGATIVE NRG Methicillin resistant Staphylococcus aureus (MRSA) screening culture - 15:41 Methicillin resistant Staphylococcus aureus (MRSA) screening culture NEG NRG Encounters ACCT No. Visit Date/Time Discharge Status Pt. Type Provider Facility Loc./Unit Complaint [id number] 08/16/2018 14:54:00 08/16/2018 15:25:00 DIS Outpatient MICHELLE IRWIN MD [facility] PREOP ROBOTIC TOTAL LAP. HYST [id number] 05/03/2018 20:07:00 05/04/2018 06:53:00 DIS Outpatient CATALINA RIVERA [facility] SLEEP HYPERSOMNIA G47.10 [id number] 09/30/2017 11:11:00 09/30/2017 23:59:59 CLS Outpatient Javi MEEKS MD [facility] CARD R00.2 PALPITATIONS [id number] 09/11/2017 00:31:00 09/11/2017 23:59:59 CLS Preadmit Javi MEEKS MD [facility] CARD R00.2,R94.31,R06.02 [id number] 06/12/2017 07:56:00 09/10/2017 00:01:00 DIS Outpatient Javi MEEKS MD [facility] CARD R00.2,R94.31,R06.02 [id number] 06/17/2017 11:17:00 06/17/2017 23:59:59 CLS Outpatient CATALINA RIVERA [facility] RAD 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 [id number] 06/05/2017 10:39:00 06/05/2017 23:59:59 CLS Preadmit Javi MEEKS MD [facility] CARD R00.2,R94.31,R06.02 [id number] 06/05/2017 10:37:00 06/05/2017 23:59:59 CLS Preadmit Javi MEEKS MD [facility] CARD R00.2, R94.31, R06.02 [id number] 01/12/2017 07:17:00 01/12/2017 23:59:59 CLS Outpatient CATALINA RIVERA [facility] RAD SCREENING [id number] 12/03/2016 10:21:00 12/03/2016 23:59:59 CLS Outpatient LUIS GONZALES, DANIEL Sung [facility] RAD J18.9 [id number] 12/02/2016 07:49:00 12/02/2016 10:40:00 DIS Emergency JONELLE SCHAFFER MD [facility] ER FEVER COUGH BLOOD IN STOOL [id number] 09/24/2015 08:55:00 09/24/2015 23:59:59 CLS Outpatient KARLO EAGLE APRN [facility] RAD SUBCLINICAL HYPERTHYROIDISM [id number] 08/20/2018 14:45:00 PEN Preadmit ALIDA GONZALES, MICHELLE Padron [facility] SDC PELVIC MASS, DYSFUNCTIONAL UTERINE BLEEDING, RECTO [id number] 03/13/2017 08:07:00 Document Registration [id number] 08/05/2018 14:30:00 08/05/2018 23:59:59 CLS Outpatient CATALINA RIVERA APRN [facility] [id number] 03/30/2018 17:00:00 Document Registration [id number] 11/09/2017 17:00:00 Document Registration [id number] 11/05/2017 08:20:00 Document Registration [id number] 05/14/2017 08:00:00 Document Registration [id number] 05/15/2017 15:09:00 Document Registration [id number] 11/19/2016 00:06:00 Document Registration [id number] 11/21/2016 08:07:00 Document Registration [id number] 12/02/2016 08:08:00 Document Registration
[2018-08-20 11:35] VITALS: BP 112/63
[2018-08-20] MEDS: LACTATED RINGERS 1,000 ML IV PRN ×2 (11:35→13:30)
[2018-08-20] MEDS ORDERED: MIDAZOLAM 2 MG/2 ML (VERSED) VIAL ONE (11:42)
[2018-08-20] MEDS ORDERED: DEXAMETHASONE 10 MG/ML (DECADRON) 1 ML VIAL ONE (11:42)
[2018-08-20] MEDS ORDERED: proPOfol 200 MG/20 ML (DIPRIVAN) VIAL IV ONE (11:42)
[2018-08-20] MEDS ORDERED: LIDOCAINE PF 2% 5 ML (XYLOCAINE) VIAL ONE (11:42)
[2018-08-20] MEDS ORDERED: ONDANSETRON 4 MG/2 ML (SDV) Z0FRAN ONE ×2 (11:42→13:58)
[2018-08-20] MEDS ORDERED: fentaNYL INJECTION 250 MCG/5 ML AMP ONE (11:42)
[2018-08-20] MEDS ORDERED: ROCURONIUM 10 MG/ML 5 ML SYRINGE IV ONE ×2 (11:42→13:49)
[2018-08-20] MEDS ORDERED: ceFAZolin INJECTION 1,000 MG in NS (IVPB) 50 ML IV ONE (12:00)
[2018-08-20] MEDS ORDERED: ESTRADIOL VAGINAL CREAM 42.5 GM (ESTRACE) VG ONE (12:05)
[2018-08-20] MEDS ORDERED: BUP/EPI 0.5% 1:200,000 (SENSORCAINE) 30 ML VIAL ONE (12:05)
--- NOTE | 2018-08-20 12:48 | Progress Note-Pre Operative ---
Pre-Operative Progress Note H&P Reviewed The H&P was reviewed, patient examined and no changes noted. Date Seen by Provider: Aug 20, 2018 Time Seen by Provider: 12:48 Date H&P Reviewed: Aug 20, 2018 Time H&P Reviewed: 12:48 Pre-Operative Diagnosis: DUB/menorrhagia/uterovaginal prolapse MICHELLE IRWIN MD Aug 20, 2018 12:48
--- NOTE | 2018-08-20 12:50 | Progress Note-Post Operative ---
Post-Operative Progess Note Surgeon (s)/Flight Crew Time Clerk (s) Surgeon MICHELLE IRWIN MD Flight Crew Time Clerk: Sandra Nicolas Pre-Operative Diagnosis DUB/menorrhagia/uterovaginal prolapse Post-Operative Diagnosis SAME with pathology pending Procedure & Operative Findings Date of Procedure 08/20/18 Procedure Performed/Findings T LH/BSO/posterior repair Anesthesia Type GETA Estimated Blood Loss Estimated blood loss (mL): 100 cc Specimens/Packing Specimens Removed Uterus tubes and ovaries Packing: Kerlix in the vagina MICHELLE IRWIN MD Aug 20, 2018 12:49
[2018-08-20] MEDS ORDERED: OXYC1TAB87 PO (12:54)
[2018-08-20] MEDS ORDERED: DOCU-143 PO (12:54)
[2018-08-20] MEDS ORDERED: IBUP-1780 PO (12:54)
--- NOTE | 2018-08-20 12:55 | Discharge Instructions ---
Discharge Instructions Discharge Medications New, Converted or Re-Newed RX: RX on Chart Patient Instructions Patient Instructions: As directed Return to The Hospital For: As directed Activity & Diet Discharge Diet: No Restrictions Activity as Tolerated: No Orders-Post D/C & Referrals Follow Up Appt: Return to clinic on Thursday, August 23, 2018 at 930 a.m. for staple removal Call to make follow up appt. for patient in 4 weeks. Activity: Rest for 24 hours, than as tolerated. Wound Care: May remove Band-Aid tomorrow. Replace as desired. Keep incisions clean and dry. Wash daily with soap and water. Please call in RX to patient pharmacy. Diet: As tolerated-Clear Liquids only if nauseated. shower or tub bathe as desired. No driving for 24 hours, no alcoholic beverages for 24 hours, and nothing per vagina (no tampons, douching, or intercourse) for 8 weeks. Patient to return to the clinic as soon as possible for: Temperature greater than 101F, Severe Pain, Foul discharge from incision or vagina, Excessive Bleeding (more than a period). MICHELLE IRWIN MD Aug 20, 2018 12:55
[2018-08-20] MEDS ORDERED: PROMETHAZINE INJ 25 MG/ML (PHENERGAN) AMP IM PRN (13:00)
[2018-08-20] MEDS ORDERED: BENZOCAINE/MENTHOL (DERMOPLAST) 56 ML CAN TP PRN (13:00)
[2018-08-20] MEDS ORDERED: ESTROGENS CONJ IV 25 MG/5 ML (PREMARIN) VIAL IVP ONE (13:00)
[2018-08-20] MEDS ORDERED: ONDANSETRON 4 MG/2 ML (SDV) Z0FRAN IVP PRN ×2 (13:00→15:15)
[2018-08-20] MEDS ORDERED: WATER (STERILE) FOR INJ 10 ML BTL INJ ONE (13:00)
[2018-08-20] MEDS ORDERED: PATIENT MAY USE OWN MEDS, ALL MC SCH ×2 (13:00→19:15)
[2018-08-20] MEDS ORDERED: KETOROLAC 30 MG/ML VIAL IVP SCH (13:00)
[2018-08-20] MEDS ORDERED: MEPERIDINE (DEMEROL) INJ 100 MG/ML IM PRN (13:00)
[2018-08-20] MEDS ORDERED: HYDROmorphone 2 MG/ML VIAL (DILAUDID) ONE (13:57)
[2018-08-20] MEDS ORDERED: KETOROLAC 30 MG/ML VIAL ONE (13:58)
[2018-08-20] MEDS ORDERED: NEOSTIGMINE 1 MG/ML 5 ML SYRINGE ONE (14:38)
[2018-08-20] MEDS ORDERED: GLYCOPYRROLATE 0.2 MG/ML (ROBINUL) 2 ML VIAL ONE ×2 (14:38→14:42)
[2018-08-20] MEDS ORDERED: SEVOFLURANE (ULTANE) 15 ML INHAL SOLN ONE (15:07)
[2018-08-20] MEDS ORDERED: HYDROmorphone 2 MG/ML VIAL (DILAUDID) IV ONE (15:15)
[2018-08-20] MEDS ORDERED: morphine INJ 10 MG/ML 1ML (SYR OR VIAL) IVP ONE (15:15)
[2018-08-20 16:05] VITALS: BP 104/59
[2018-08-20] MEDS ORDERED: D5 LR IV SOLUTION 1,000 ML IV ONE (16:07)
[2018-08-20] MEDS ORDERED: PROMETHAZINE INJ 25 MG/ML (PHENERGAN) AMP ONE (16:23)
[2018-08-20] MEDS ORDERED: MEPERIDINE (DEMEROL) INJ 100 MG/ML ONE (16:23)
[2018-08-20] MEDS: D5 LR IV SOLUTION 1,000 ML IV SCH (16:25)
[2018-08-20] MEDS: oxyCODONE/APAP 5/325MG (PERCOCET 5) TABLET PO PRN (18:40)
[2018-08-20] MEDS ORDERED: ESTROGENS CONJ IV 25 MG/5 ML (PREMARIN) VIAL IV ONE (19:00)
[2018-08-20 19:35] VITALS: BP 105/64
[2018-08-20] MEDS ORDERED: traZODone 150 MG (DESYREL) TABLET PO SCH (21:00)
[2018-08-20] MEDS ORDERED: GUANFACINE 2 MG PO SCH (21:00)
[2018-08-20] MEDS ORDERED: LORazepam 0.5 MG (ATIVAN) TABLET PO SCH ×2 (21:00)
[2018-08-20] MEDS ORDERED: NON-FORMULARY MEDICATION 1 EA EA (Ropinirole HCl 1 MG) PO SCH (21:00)
[2018-08-20] MEDS ORDERED: NEBIVOLOL 5 MG TAB (BYSTOLIC) PO SCH (21:00)
[2018-08-20] MEDS ORDERED: DESVENLAFAXINE SUCCINATE 100 MG PO SCH (21:00)
[2018-08-20] MEDS ORDERED: DESVENLAFAXINE 100 MG PO SCH (21:00)
[2018-08-20] MEDS ORDERED: rOPINIRole 1 MG (REQUIP) TABLET PO SCH (21:00)
[2018-08-20] MEDS ORDERED: NON-FORMULARY MEDICATION 1 EA EA (Guanfacine HCl 1 MG) PO SCH (21:00)
[2018-08-20] MEDS: KETOROLAC 30 MG/ML VIAL IVP SCH (21:29)
[2018-08-21] MEDS: D5 LR IV SOLUTION 1,000 ML IV SCH (00:24)
[2018-08-21 00:25] VITALS: BP 103/66
[2018-08-21] MEDS: oxyCODONE/APAP 5/325MG (PERCOCET 5) TABLET PO PRN ×2 (00:25→09:39)
--- NOTE | 2018-08-21 00:26 | OPERATIVE REPORT ---
DATE OF SERVICE: 08/20/2018 PREOPERATIVE DIAGNOSIS: Dysfunctional uterine bleeding in menorrhagia and rectocele. POSTOPERATIVE DIAGNOSIS: Dysfunctional uterine bleeding in menorrhagia and rectocele. OPERATIVE PROCEDURE: Total laparoscopic hysterectomy with bilateral salpingo-oophorectomy and posterior vaginal repair. OPERATIVE DESCRIPTION: With the patient in supine position under satisfactory general anesthesia, she was prepped and draped in the usual fashion for abdominal and vaginal surgery, positioned in the [facility] and draped appropriately for total laparoscopic hysterectomy. A weighted speculum was placed in the posterior fornix of vagina, cervix exposed and grasped anteriorly with single tooth tenaculum. Uterus was sounded to 9 cm with the uterine sound. The cervix was then serially dilated with Maximo dilators to accommodate a Shirley II manipulator, which was placed using a 6 mm x 8 cm uterine probe and a 30 mm colpotomy ring. Sutures of #1 Vicryl placed at 3 and 9 o'clock position of the cervix to affix the uterus to the manipulator. Mckeon catheter was placed in the urinary bladder. The patient was brought in low dorsal lithotomy position. A 12 mm incision was made 4 cm superior to the umbilicus and 8 mm incisions were made 9 cm lateral to the umbilicus. Veress needle was placed through the upper abdominal incision. Correct placement was confirmed with water drop test. The abdomen was insufflated with 2.4 liters of carbon dioxide and the Veress needle was removed and a 12 mm Optiview laparoscopic port was placed. The abdominal wall was transilluminated and 8 mm ports were placed through incisions of those sizes. There were some adhesions of omentum to the anterior abdominal wall off to the left of the midline. These were out of the way. The scope passed easily by, the operative instruments passed easily by, so that was left in situ. The patient was placed in Trendelenburg and the laparoscopic manipulator was positioned. Using now a bipolar fenestrated grasper on the left and a vessel sealer on the right, pelvis was first examined. Both tubes and ovaries were fairly normal appearing. There were some ovarian cysts. The tubes showed evidence of tubal sterilization remotely. The uterus was somewhat mottled in appearance. Both ureters were seemed to peristalse and were down away from the IP ligament and the round ligament. An attempt was made to see the appendix. It was apparently retrocecal and high above the pelvis and I could not see it, so we did not disturb the bowel in a significant amount and just left the appendix along. The laparoscope was brought back to the pelvis. The right tube and ovary were grasped and elevated. The IP ligament was clamped, cauterized and divided using the vessel sealer across the IP ligament, across the mesovarium, across the round ligament, the broad ligament and down on to the cardinal ligament on the right. The same procedure was then performed on the left, allowing for removal of tubes and ovaries eventually with the uterus anterior lower uterine segment was exposed using a monopolar shear on the right instead of the vessel sealer. The bladder peritoneum was divided across lower uterine segment. The bladder was dissected carefully down off of the lower uterine segment and off of the cervix and then colpotomy incision was initiated at 12 o'clock position of the cervix. The colpotomy ring was exposed circumferentially until the entire colpotomy ring was seen and then the uterus with tubes and ovaries still attached was extracted through the vagina. The vaginal cuff was closed with two sutures of V-Loc barbed suture starting first from the right angle and closing about 2/3 of the cuff and then from the left angle and closing the balance of the cuff and reperitonealizing the cuff with the rest of that suture. Care was taken during sure inclusion of the uterine pedicle vessels with the initiating stitch on each side to ensure hemostasis. The pelvis was examined for hemostasis, which was complete. There was no significant blood loss. Both ureters were seemed to peristalse. The procedure at this point was terminated. The operative instruments were removed under direct vision as were the ports. The abdomen was evacuated of the insufflating gas in the process of removing the ports. The skin incisions were stapled after first closing the fascia at the supraumbilical incision with a [id number] suture of 2-0 Vicryl. The patient was repositioned now in the dorsal lithotomy position for the posterior repair. The Mckeon catheter was left to dependent drainage. Wing clamps were placed on the perineum and the hymenal ring at 5 and 7 o'clock position and inverted triangle of skin was removed from the perineal body. Using the base of the triangle as the two Wing clamps, an upright triangle of skin was removed from the posterior vaginal floor. Using the same base, approximately 2.5 cm triangle was removed from the perineal body. The rectovaginal space was then entered sharply and dissected bluntly until the entire rectocele was reduced. The rectovaginal space was then obliterated with interrupted sutures of 2-0 Vicryl. The redundant posterior vaginal wall muscularis and mucosa was removed sharply. The vaginal wall was closed with a running lock suture of 3-0 Vicryl Rapide. The vagina was examined for hemostasis, which was complete. The vaginal cuff was completely hemostatic and was completely reapproximated. Digital rectal exam did demonstrate approximately 3 mm segment of suture into the anterior rectal wall that was palpable through the rectum. Metzenbaum scissors were passed through the anus and the suture was clipped to allow it to retract; with the reexamination of the rectum, there were no sutures into or through the rectal mucosa. There was no stricture or stenosis of the rectum or the anus. The vagina was now filled with Estrace vaginal cream and a pack of Kerlix gauze was placed. Sponge and needle counts were correct at the end of procedure. Estimated blood loss for procedure was around 100 mL. The patient tolerated the procedure well and was transferred to the recovery room in stable condition. Job ID: [id number] DocumentID: [id number] Dictated Date: 08/20/2018 14:50:32 Poultry Dressing Worker Date: 08/21/2018 00:26:00 Dictated By: MICHELLE IRWIN MD [facility]
[2018-08-21 03:49] VITALS: BP 102/62
[2018-08-21] MEDS: KETOROLAC 30 MG/ML VIAL IVP SCH (03:51)
--- NOTE | 2018-08-21 05:21 | NUR ---
iv dc'd, faith dc'd and vag packing dc'd. pt tolerated well. pt up to bathroom. pericare completed. pt assisted back to bed
--- NOTE | 2018-08-21 07:15 | NUR ---
PT VOIDED 100 CC URINE. ACC BY RUSH RN TO BATHROOM.
--- NOTE | 2018-08-21 07:30 | Progress Note-Standard ---
Standard Progress Note Progress Notes/Assess & Plan Date Seen by a Provider: Aug 21, 2018 Time Seen by a Provider: 07:29 Progress/Assessment & Plan This patient is without complaint. She is ambulating. She has not voided as of yet. She is tolerating oral intake well has good pain control. Patient denies chest pain, denies shortness of breath, denies nausea vomiting, and denies headache. Vital Signs Date Time Temp Pulse Resp B/P (MAP) Pulse Ox O2 Delivery O2 Flow Rate FiO2 08/21/18 03:49 97.7 80 18 102/62 (75) 94 Room Air 08/21/18 00:25 99.0 81 18 103/66 (78) 95 Room Air 08/20/18 20:14 Room Air 08/20/18 19:35 98.2 69 16 105/64 (78) 96 Room Air 08/20/18 16:05 98.2 61 16 104/59 (74) 94 Room Air 08/20/18 15:00 98.4 08/20/18 11:35 98.9 62 18 112/63 (79) 93 Room Air I & O 08/21/18 07:00 Intake Total 1210 ml Output Total 225 ml Balance 985 ml Vital signs are stable. Patient is afebrile. The abdomen is benign. The surgical dressings are clean dry and intact. Extremities show no clubbing or cyanosis. There is no Homans sign. Assessment and plan postoperative day number 1 doing well. Plan is for discharge home once patient is demonstrating adequate bladder function. MICHELLE IRWIN MD Aug 21, 2018 07:30
[2018-08-21] MEDS ORDERED: TRAM-42 PO (07:32)
--- NOTE | 2018-08-21 07:50 | NUR ---
DR. IRWIN HERE TO SEE PT. PLAN FOR DISMISSAL.
[2018-08-21 08:00] VITALS: BP 104/57
--- NOTE | 2018-08-21 08:00 | NUR ---
A.M. ASSESSMENT COMPLETED. VSS. PLANNING TO GO HOME TODAY. DOING WELL.
[2018-08-21] MEDS ORDERED: IBUPROFEN 800 MG (MOTRIN) TAB PO ONE (08:17)
--- NOTE | 2018-08-21 08:30 | NUR ---
OUT TO AMBULATE IN THE [place]. DOING WELL. PT'S MOTHER AMBULATING WITH HER.
[2018-08-21] MEDS ORDERED: DOCUSATE SODIUM 100 MG (COLACE) CAP PO SCH (09:00)
[2018-08-21] MEDS ORDERED: ESTRADIOL 1 MG TAB (ESTRACE) PO SCH (09:00)
--- NOTE | 2018-08-21 09:00 | NUR ---
PT HAS VOIDED AGAIN AND IS DOING WELL.
--- NOTE | 2018-08-21 09:39 | NUR ---
PERCOCET 5/325 2 TABS P.O. FOR C/O ABD PAIN.
--- NOTE | 2018-08-21 09:50 | NUR ---
DISCHARGE INSTRUCTIONS REVIEWED WITH COPY TO PT. RXS GIVEN AND CALLED INTO [facility]. STATES UNDERSTANDING OF ALL INSTRUCTIONS AND NEED TO F/U SCHEDULED AND NEEDED.
[2018-08-21 10:05] VITALS: BP 104/57
--- NOTE | 2018-08-21 10:05 | NUR ---
DISMISSED FROM [facility] VIA W/C TO FAMILY CAR IN STABLE CONDITION ACC BY MOTHER AND DANIELLA FUNEZ.
--- NOTE | 2018-08-21 11:00 | NUR ---
PT CALLED AND STATES SHE DID NOT GET A RX FOR ESTRADIOL. DR. IRWIN NOTIFIED. ORDER TO CALL IN DRUG FOR PT. CALLED IN ESTRADIOL 2 MG P.O. DAILY #90 WITH 3 REFILLS.
[2018-08-21] MEDS ORDERED: IBUPROFEN 800 MG (MOTRIN) TAB PO SCH (15:00)
--- NOTE | 2018-08-21 18:08 | Anesthesia-General Post-Op ---
General Patient Condition Mental Status/LOC: Same as Preop Cardiovascular: Satisfactory Nausea/Vomiting: Absent Respiratory: Satisfactory Pain: Controlled Complications: Absent Post Op Complications Complications None Follow Up Care/Instructions Patient Instructions None needed. Anesthesia/Patient Condition Patient Condition Patient is doing well, no complaints, stable vital signs, no apparent adverse anesthesia problems. No complications reported per nursing. D/C home per [facility] Criteria: Yes CHERISE ATWOOD CRNA Aug 21, 2018 18:08
== END 2018-08-21 10:05 | disposition home or self-care (01) ==
LOC: SDC 11:20 → WS 16:00 → SDC 08-21 10:05
PROVIDERS: ATTEND Obstetrics & Gynecology
DX: N92.0 Excessive and frequent menstruation with regular cycle (principal); D25.1 Intramural leiomyoma of uterus; N88.8 Other specified noninflammatory disorders of cervix uteri; N83.8 Other noninflammatory disorders of ovary, fallopian tube and broad ligament; N83.01 Follicular cyst of right ovary; N83.02 Follicular cyst of left ovary; N81.6 Rectocele; R00.0 Tachycardia, unspecified; J45.909 Unspecified asthma, uncomplicated; K21.9 Gastro-esophageal reflux disease without esophagitis; E66.9 Obesity, unspecified; Z68.34 Body mass index [BMI] 34.0-34.9, adult; Z79.899 Other long term (current) drug therapy
CPT/HCPCS: 84703; 86850; 86900; 86901; 94664